=== PATIENT | male | born 1930 | race Caucasian/White ===

== ENCOUNTER 2016-09-13 15:30 | Outpatient (CLI) | payer MEDICARE, BC | END 2016-09-13 15:31 | disposition home or self-care (01) | DX: M62.81 Muscle weakness (generalized) (principal); R06.09 Other forms of dyspnea ==

== ENCOUNTER 2016-09-27 20:24 | Outpatient (CLI) | payer MEDICARE, BC | END 2016-09-27 20:25 | disposition home or self-care (01) | DX: D53.9 Nutritional anemia, unspecified (principal) ==

== ENCOUNTER 2017-10-15 09:47 | Outpatient (CLI) | payer MEDICARE, BC | END 2017-10-15 09:48 | disposition EMS.NT | LOC: EMS 09:47 | PROVIDERS: ATTEND Surgery | DX: R53.1 Weakness (principal); W18.39XA Other fall on same level, initial encounter; Y92.003 Bedroom of unspecified non-institutional (private) residence as the place of occurrence of the external cause ==

== ENCOUNTER 2018-02-12 20:35 | Inpatient (IN) | payer MEDICARE, BC ==
--- NOTE | 2018-02-12 21:57 | ED Physician Documentation ---
PD HPI LOWER EXT INJURY - Stated complaint Stated Complaint: GLF - HIP PX - Chief complaint Chief Complaint: Ext Problem - History obtained from History obtained from: Patient - History of Present Illness PD HPI LOW EXT INJURY LOCATION: Left, Hip, Knee Type of injury: Fall Where injury occurred: Home Timing - onset: Enter time (18:00), Today Timing - details: Abrupt onset Pain level max: 8 Pain level now: 4 Improved by: Rest Worsened by: Moving Associated symptoms: No: Weakness, Numbness, Tingling, Swelling, Discolored Similar symptoms before: Has not had sx before Recently seen: Not recently seen - Additional information Additional information: at approximately 6 PM tonight, patient was walking from his car to his house, lost his balance, and fell in the driveway on his left side. c/o left knee and left hip pain, unable to bear weight; however, he was able to get back into the car and thus his spouse drove patient to ED. Review of Systems Eyes: reports: Reviewed and negative Cardiac: reports: Reviewed and negative Respiratory: reports: Reviewed and negative GI: reports: Reviewed and negative Musculoskeletal: reports: Joint pain (left hip, left knee), Pain with weight bearing (unable to bear weight (LLE)). denies: Neck pain, Back pain Neurologic: reports: Head injury. denies: Generalized weakness, Focal weakness , Numbness, Confused, Altered mental status, Headache, LOC PD PAST MEDICAL HISTORY - Past Medical History Cardiovascular: Hypertension Respiratory: None Endocrine/Autoimmune: None GI: GERD Musculoskeletal: Osteoarthritis - Past Surgical History Past Surgical History: Yes General: Hiatal hernia repair Ortho: Knee replacement HEENT: Cataracts - Present Medications Home Medications: Ambulatory Orders Medication Instructions Recorded Confirmed Cephalexin [Keflex] 500 mg PO TID #20 capsule 08/16/16 Cetirizine HCl 10 mg PO DAILY 08/16/16 08/16/16 predniSONE [Prednisone] 40 mg PO DAILY 08/16/16 08/16/16 raNITIdine [Zantac] 1 tab PO BID 08/16/16 08/16/16 - Allergies Allergies/Adverse Reactions: Allergies Allergy/AdvReac Type Severity Reaction Status Date / Time No Known Drug Allergies Allergy Verified 02/12/18 20:50 - Social History Does the pt smoke?: No Smoking Status: Never smoker Does the pt drink ETOH?: No Does the pt have substance abuse?: No - Immunizations Immunizations are current?: No - POLST Patient has POLST: No PD ED PE NORMAL - Vitals Vital signs reviewed: Yes - General General: Alert and oriented X 3, No acute distress (NAD at rest, appears to be in painful discomfort with any movement involving LLE), Well developed/nourished - HEENT HEENT: PERRL, EOMI - Neck Neck: No bony TTP - Cardiac Cardiac: RRR, No murmur - Respiratory Respiratory: No respiratory distress, Clear bilaterally - Abdomen Abdomen: Soft, Non tender - Extremities Extremities: No edema - Neuro Neuro: Alert and oriented X 3, labor relations representative 2-12 intact, No motor deficit, No sensory deficit, Normal speech Eye Opening: Spontaneous Motor: Obeys Commands Verbal: Oriented GCS Score: 15 PD ED PE EXPANDED - HEENT HEENT Visual: 1 - swelling (1-2 cm diameter swelling with mild focal tenderness, no bony step off) - Extremities Extremities: Tenderness, Limited ROM (left hip and left knee) Results - Vitals Vitals: Vital Signs - 24 hr 02/12/18 02/12/18 20:44 22:30 Temperature 36.4 C L Heart Rate 82 95 Respiratory 20 16 Rate Blood Pressure 133/93 H 130/75 O2 Saturation 100 93 Oxygen O2 Source Room air - Labs Labs: Laboratory Tests 02/12/18 02/12/18 23:15 23:15 WBC 11.4 H RBC 3.41 L Hgb 12.8 L Hct 38.5 L MCV 112.7 H MCH 37.6 H MCHC 33.4 RDW 16.1 H Plt Count 149 MPV 10.1 Neut # (Auto) 8.5 H Lymph # (Auto) 2.0 [place] # (Auto) 0.8 Eos # (Auto) 0.1 Baso # (Auto) 0.1 Absolute Nucleated RBC 0.00 Nucleated RBC % 0.0 Manual Slide Review Indicated Platelet Estimate NORMAL (130-450,000) RBC Morph Micro Appear 1+ OVALOCYTES Sodium 139 Potassium 3.7 Chloride 103 Carbon Dioxide 27 Anion Gap 9.0 BUN 19 Creatinine 1.2 Estimated GFR (MDRD) 57 L Glucose 110 H Calcium 9.3 - Rads (name of study) left knee xrays Radiology: Prelim report reviewed, See rad report left hip xrays Radiology: Prelim report reviewed, See rad report PD MEDICAL DECISION MAKING - ED course Complexity details: reviewed results, re-evaluated patient, considered differential, d/w patient, d/w family ED course: left hip fracture (subcapital) on xrays. D/W Dr. Dalton, who will see patient in the AM, recommends hospitalist admission. D/W Dr. Cameron, will admit to hospitalist service. - Sepsis Event Vital Signs: Vital Signs - 24 hr 02/12/18 02/12/18 20:44 22:30 Temperature 36.4 C L Heart Rate 82 95 Respiratory 20 16 Rate Blood Pressure 133/93 H 130/75 O2 Saturation 100 93 Oxygen O2 Source Room air Departure - Departure Disposition: 66 [facility] DC/Xfer Clinical Impression: Closed left hip fracture Qualifiers: Encounter type: initial encounter Qualified Code(s): S72.002A - Fracture of unspecified part of neck of left femur, initial encounter for closed fracture Condition: Good Discharge Date/Time: 02/13/18 00:21
--- NOTE | 2018-02-12 22:46 | XRAY Report ---
Procedure Date: 02/12/2018 Accession Number: [id number] / [id number] Procedure: XR - Knee 4 View LT CPT Code: FULL RESULT: EXAM: LEFT KNEE RADIOGRAPHY. EXAM DATE: 02/12/2018 10:21 PM. CLINICAL HISTORY: Fall. COMPARISON: None. TECHNIQUE: 4 views. FINDINGS: Bones: Normal. No fractures or bone lesions. Joints: Moderate narrowing of the left medial compartment with small osteophytes. No subluxations or large effusions. Soft Tissues: Normal. No soft tissue swelling. IMPRESSION: 1. Moderate left medial compartment arthritis. 2. No fracture or malalignment. 3. No effusions. RADIA
--- NOTE | 2018-02-12 22:47 | XRAY Report ---
Procedure Date: 02/12/2018 Accession Number: [id number] / [id number] Procedure: XR - Hip w/Pelvis 2-3V LT CPT Code: FULL RESULT: EXAM: LEFT HIP AND PELVIS RADIOGRAPHY. EXAM DATE: 02/12/2018 10:21 PM. HISTORY: Fall. COMPARISONS: None. TECHNIQUE: 1 view of the pelvis and 1 view of the hip. FINDINGS: Bones: Osteopenic patient. There is an acute, mildly displaced left femur subcapital neck fracture. No displaced fracture of the right femur, neck or bony pelvis. Joints: Normal alignment of both hip joints. Mild right SI joint sclerosis. Degenerative disk disease is noted in the lower lumbar spine. Soft Tissues: Normal. No soft tissue swelling. IMPRESSION: 1. Acute, mildly displaced subcapital left femoral neck fracture. 2. No dislocation. RADIA
[2018-02-12] MEDS ORDERED: SODIUM CHLORIDE 0.9% 1,000 ML IV STA (23:01)
[2018-02-12] MEDS ORDERED: MORPHINE 2 MG/ML SYRINGE IVP STA (23:02)
[2018-02-12] MEDS ORDERED: HYDROmorphone 0.5 MG/0.5 ML SYRINGE IVP PRN (23:26)
--- NOTE | 2018-02-12 23:30 | PROVIDER PROGRESS NOTE ---
Subjective - Prog Note Date Prog Note Date: 02/12/18 Prog Note Time: 23:24 - Subjective Pt reports feeling: Worse (Patient [facility] a GLF tonight, sustaining a mildly impacted lef tfemoral neck hip fracture. No LOC or other injuries. No distal weakness/numbness) Objective - Vital Signs/Intake & Output Vital Signs: Vital Signs x48h Temp Pulse Resp BP Pulse Ox 02/12/18 20:44 36.4 C L 82 20 133/93 H 100 Intake & Output: Intake & Output 02/09/18 02/10/18 02/11/18 02/12/18 23:59 23:59 23:59 23:59 Output Total 200 Balance -200 - Diagnostic Imaging Diagnostic Imaging Comments: XR showed mildly impacted, Pauwel's I-II left femoral neck hip fracture - Other Results/Comments Other Results/Comments: EXAM: Left hip - 1-2 + tender anteriorly. Painful left motion. Minimal leg shortening. Moves toes well. Sensation intact. Good cap filling Assessment/Plan - Problem List (1) Closed left hip fracture Impression: Closed , minimally impacted femoral neck hip fracture; Pauwel's I-II PLAN: After medical clearance, plan surgical fixation of fracture with multiple large cannulated screws. Risks and benefits of surgery explained and questions answered. Patient wishes to proceed with surgery this morning. Leg marked. consent signed. Qualifiers: Encounter type: initial encounter Qualified Code(s): S72.002A - Fracture of unspecified part of neck of left femur, initial encounter for closed fracture
[2018-02-12 23:33] LABS: BASOPHILS # (AUTO) 0.1 10^3/uL (0.0-0.1); BASOPHILS % (AUTO) 0.7 %; EOSINOPHILS # (AUTO) 0.1 10^3/uL (0.0-0.7); EOSINOPHILS % (AUTO) 0.5 %; HGB - HEMOGLOBIN 12.8 g/dL (14.0-18.0); LYMPHOCYTES % (AUTO) 17.9 %; MEAN CORPUSCULAR HEMOGLOBIN 37.6 pg (27.0-31.0); MEAN CORPUSCULAR HGB CONC 33.4 g/dL (32.0-36.0); MEAN CORPUSCULAR VOLUME 112.7 fL (80.0-94.0); MEAN PLATELET VOLUME 10.1 fL (7.4-11.4); MONOCYTES # (AUTO) 0.8 10^3/uL (0.0-1.0); MONOCYTES % (AUTO) 6.7 %; NEUTROPHILS # (AUTO) 8.5 10^3/uL (1.5-6.6); NEUTROPHILS % (AUTO) 74.2 %; PLT - PLATELET COUNT 149 10^3/uL (130-450); RED BLOOD COUNT 3.41 10^6/uL (4.70-6.10); RED CELL DISTRIBUTION WIDTH 16.1 % (12.0-15.0); WHITE BLOOD COUNT 11.4 x10^3/uL (4.8-10.8)
[2018-02-12 23:35] LABS: CALCIUM 9.3 mg/dL (8.5-10.3); CREATININE 1.2 mg/dL (0.6-1.2)
[2018-02-13 00:21] LABS: PLATELET ESTIMATE, MANUAL NORMAL (130-450,000) (NORMAL)
[2018-02-13] MEDS: D5.45NS W/20 MEQ KCL 1,000 ML IV SCH ×2 (00:28→07:56)
[2018-02-13] MEDS: SODIUM CHLORIDE FLUSH 0.9% 10 ML SYRINGE IVP SCH ×4 (00:28→23:44)
--- NOTE | 2018-02-13 00:30 | HISTORY & PHYSICAL EXAMINATION ---
Chief Complaint - Chief Complaint Chief Complaint: Left hip pain History of Present Illness - Admitted From Admitted From:: Home - History Obtained From History obtained from: Patient, , ED physician - History of Present Illness HPI Comment/Other: Mr. Erik Villasenor is a very pleasant 87-year-old gentleman who unfortunately fell earlier today, landing on his left hip. He says he did not lose consciousness or strike his head but he does appear to have a small amount of trauma to his head. He came to the emergency department and was found to have a left intertrochanteric fracture. He has pain which she says is well controlled at this time and is aching in quality. He denies any fevers or chills, shortness of breath or chest pain. He will be seen by Dr. Dalton in the morning with anticipated surgery tomorrow some time. History - Past Medical History Cardiovascular: reports: None Respiratory: reports: None Endocrine/Autoimmune: reports: None GI: reports: GERD Musculoskeletal: reports: Osteoarthritis MRSA Hx?: No - Past Surgical History General: reports: Hiatal hernia repair Ortho: reports: Knee replacement HEENT: reports: Cataracts - Family & Social History Family History: Mother: (Mother age 91 of natural causes, father age 86 of unknown causes, possibly cardiac.), Father: , Sister: , CAD, Hyperlipidemia, Hypertension, [place] Living arrangement: At home Living Situation: With spouse/s.o. - Substance History Use: Uses substance without health or social issues: Alcohol Abuse: Recurrent use of substance despite neg consequences: NONE Dependence: Experiences withdrawal or developed tolerances: NONE - POLST Patient has POLST: No POLST Status: Full Code Meds/Allgy - Home Medications Home Medications: Ambulatory Orders Medication Instructions Recorded Confirmed Cephalexin [Keflex] 500 mg PO TID #20 capsule 08/16/16 Cetirizine HCl 10 mg PO DAILY 08/16/16 08/16/16 predniSONE [Prednisone] 40 mg PO DAILY 08/16/16 08/16/16 raNITIdine [Zantac] 1 tab PO BID 08/16/16 08/16/16 - Allergies Allergies/Adverse Reactions: Allergies Allergy/AdvReac Type Severity Reaction Status Date / Time No Known Drug Allergies Allergy Verified 02/12/18 20:50 Review of Systems - Constitutional Constitutional: denies: Fatigue, Fever, Chills, Malaise - Eyes Eyes: denies: Pain, Irritation, Amaurosis, Blurred vision, Dipolpia - Ears, Nose & Throat Ears, Nose & Throat: denies: Ear pain, Tinnitus, Vertigo, Nasal pain, Nosebleeds , Hoarseness - Cardiovascular Cariovascular: denies: Irregular heart rate, Palpitations, Chest pain, Edema, Syncope - Respiratory Respiratory: denies: Cough, Sputum production, Wheezing, Snoring, Hemoptysis, Orthopnea, SOB at rest - Gastrointestinal Gastrointestinal: denies: Abdominal pain, Abdominal distention, Constipation, Diarrhea, Change in bowel habits, Rectal bleeding - Genitourinary Genitourinary: denies: Dysuria, Frequency, Urgency, Hematuria - Musculoskeletal Musculoskeletal: reports: Muscle aches, Limited range of motion, Joint pain. denies: Back pain, Gout - Integumentary Integumentary: denies: Rash, Pruritis, Lesions, Dryness - Neurological Neurological: denies: General weakness, Focal weakness, Headache, Dizziness - Psychiatric Psychiatric: denies: Depression, Anxiety, Suicidal, Hallucinations - Endocrine Endocrine: denies: Polyuria, Polydypsia, Polyphagia - Hematologic/Lymphatic Hematologic/Lymphatic: denies: Anemia, Bruising, Petechiae, Lymphadenopathy - All Other Systems All Other Systems: reports: Reviewed and negative Exam - Vital Signs Reviewed Vital Signs: Yes Vital Signs: Vital Signs x48h Temp Pulse Resp BP Pulse Ox 02/12/18 23:56 88 16 104/56 L 95 02/12/18 23:27 36.4 C L 91 17 121/83 H 92 - Physical Exam General Appearance: positive: No acute distress, Alert Eyes Bilateral: positive: Normal inspection, PERRL, EOMI, No lid inflammation, Conjunctivae nml, No scleral icterus ENT: positive: ENT inspection nml, Pharynx nml, No signs of dehydration Neck: positive: Nml inspection, Thyroid nml, No JVD, Trachea midline. negative : Thyromegaly Respiratory: positive: Chest non-tender, No respiratory distress, Breath sounds nml. negative: Wheezes, Rales, Rhonchi Cardiovascular: positive: Regular rate & rhythm, No murmur, No gallop Peripheral Pulses: positive: 1+ Abdomen: positive: Non-tender, No organomegaly, Nml bowel sounds, No distention. negative: Guarding, Rebound Back: positive: Nml inspection. negative: CVA tenderness (R), CVA tenderness (L ) Skin: positive: Color nml, No rash, Warm, Dry. negative: Cyanosis Extremities: positive: Non-tender, Full ROM, Nml appearance, No pedal edema Neurologic/Psychiatric: positive: Oriented x3, CN's nml (2-12), Motor nml, Sensation nml, Mood/affect nml Conclusion/Plan - Problem List (1) Closed left hip fracture Conclusion/Plan: The patient has a left intertrochanteric fracture. He will be seen by Dr. Dalton for surgical repair tomorrow. He has a 0.4% risk of major cardiac event per the revised cardiac risk index. He is class I risk and has 0 points. We will obtain a 12-lead EKG but otherwise the patient is remarkably healthy 87-year- old gentleman who really does not take any kind of prescription medications on a regular basis. We will continue to monitor the patient's labs and correct any electrolyte abnormalities as they occur. Qualifiers: Encounter type: initial encounter Qualified Code(s): S72.002A - Fracture of unspecified part of neck of left femur, initial encounter for closed fracture - Lab Results Lab results reviewed: Yes Fish Bones: 02/12/18 23:15 02/12/18 23:15 Core Measures - Anticipated LOS I expect patient to be DC'd or transferred within 96 hours.: Yes - DVT/VTE - Prophylaxis VTE/DVT Device ordered at admit?: Yes
[2018-02-13 04:44] LABS: CALCIUM 8.9 mg/dL (8.5-10.3); HGB - HEMOGLOBIN 12.6 g/dL (14.0-18.0); MEAN CORPUSCULAR HEMOGLOBIN 38.2 pg (27.0-31.0); MEAN CORPUSCULAR HGB CONC 33.6 g/dL (32.0-36.0); MEAN CORPUSCULAR VOLUME 113.5 fL (80.0-94.0); MEAN PLATELET VOLUME 9.6 fL (7.4-11.4); RED BLOOD COUNT 3.31 10^6/uL (4.70-6.10); RED CELL DISTRIBUTION WIDTH 16.8 % (12.0-15.0)
[2018-02-13 04:48] LABS: MAGNESIUM 2.1 mg/dL (1.7-2.8); PHOSPHORUS 2.8 mg/dL (2.5-4.6)
[2018-02-13] MEDS: SODIUM CHLORIDE FLUSH 0.9% 10 ML SYRINGE IVP PRN (06:34)
[2018-02-13] MEDS: PANTOPRAZOLE 40 MG VIAL IVP SCH (06:34)
[2018-02-13] MEDS ORDERED: ceFAZolin 2 GM/50 ML 2 GM/50 ML BAG IV SCH (07:00)
[2018-02-13 07:19] LABS: FOLATE 5.65 ng/mL (5.90 - >24.8)
[2018-02-13] MEDS: POLYETHYLENE GLYCOL 3350 17 GM PACKET PO SCH (07:45)
[2018-02-13] MEDS ORDERED: BUPIVACAINE 0.25% PF 30 ML VIAL ONE (08:25)
--- NOTE | 2018-02-13 09:44 | CONSULTATION NOTE ---
DATE OF SERVICE: 02/13/2018 Physician: Kofi Dalton MD REFERRING PHYSICIAN: Dr. Miranda of the Emergency Room CHIEF COMPLAINT: "My left hip hurts." HISTORY OF PRESENT ILLNESS: Patient is a pleasant 87-year-old male that was carrying a heavy sack of goods from his car yesterday when he stumbled landing on his left side. He noted immediate pain in his left hip area. He was unable to stand or bear due to pain. He was taken by ambulance to the emergency room at [facility] where x-rays showed a minimally impacted, minimally displaced left femoral neck hip fracture. The patient denied any other injuries. No loss of conscious, nausea, vomiting. No distal weakness or numbness. No prior hip fractures. PHYSICAL EXAMINATION: On examination, patient had some 1+ anterior left hip tenderness on palpation. Had painful range of motion today. The leg was minimally shortened. Patient moves his toes well. Sensation intact throughout. Good capillary filling of the digits noted. IMAGING: X-rays that were taken show a mildly impacted left femoral neck fracture - Pauwels type I-II fracture. ASSESSMENT: Closed, minimally impacted left femoral neck hip fracture - Pauwels type I-II. PLAN: The patient has been cleared by Medicine to proceed with surgical fixation of this fracture. I explained to the patient and his the pros and cons of surgery, the risks and benefits. After answering all their questions, they wished to proceed with surgery as planned. They are aware of the potential risk of wound infection, blood loss, nerve involvement, malunion, nonunion, hardware failure, deep venous thromboses, etc. The left leg is then marked. Consent has been signed. We will plan on proceeding with surgery when an operating room is available later on the morning of 02/13/2018. TD: 02/13/2018 09:21
[2018-02-13] MEDS ORDERED: LACTATED RINGERS 1,000 ML IV ONE (10:13)
[2018-02-13] MEDS ORDERED: BUPIVACAINE 0.25%-EPI 1:200000 PF 30 ML VIAL ONE (10:19)
[2018-02-13] MEDS ORDERED: BUPIVACAINE 0.25%-EPI 1:200000 PF 30 ML VIAL SUBQ ONE (10:44)
--- NOTE | 2018-02-13 11:21 | OPERATIVE REPORT ---
Operative Report - General Admit Date: 02/12/18 Procedure Date: 02/13/18 Planned Procedure: Multiple cannulated screw fixation of left hip fracture Pre-Op Diagnosis: Impacted left femoral neck hip fracture - Pauwel's I-II Procedure Performed: Closed reduction and multiple cannulated screw fixation of left hip fracture Post Op Diagnosis: Same - Procedure Note Primary Surgeon: Justin Dalton Secondary Surgeon: Caitlin Anesthesia Provider: Carina Hope Anesthesia Technique: General ET tube, General LMA IV Fluids (mL): 500 Estimated Blood Loss (mL): 50 Complications: None
[2018-02-13] MEDS ORDERED: ACETAMINOPHEN 325 MG TABLET PO PRN (11:26)
[2018-02-13] MEDS ORDERED: ONDANSETRON 4 MG/2 ML VIAL IVP PRN (11:26)
[2018-02-13] MEDS ORDERED: SODIUM CHLORIDE FLUSH 0.9% 10 ML SYRINGE IVP PRN (11:26)
[2018-02-13] MEDS ORDERED: PROCHLORPERAZINE 10 MG/2 ML VIAL IVP PRN (11:26)
[2018-02-13] MEDS ORDERED: DOCUSATE SODIUM 100 MG CAPSULE PO PRN (11:26)
[2018-02-13] MEDS ORDERED: SENNA 8.6 MG TABLET PO PRN (11:26)
--- NOTE | 2018-02-13 12:00 | OPERATIVE REPORT ---
DATE OF SERVICE: 02/13/2018 Physician: Kofi Dalton MD PREOPERATIVE DIAGNOSIS: Impacted left femoral neck hip fracture - Pauwel's type 1-2. POSTOPERATIVE DIAGNOSIS: Impacted left femoral neck hip fracture - Pauwel's type 1-2. PROCEDURE PERFORMED: Closed reduction and multiple cannulated screw fixation of left hip fracture. SURGEON: Kofi Dalton MD ANESTHESIA: Barbara Hope CRNA. DESCRIPTION OF PROCEDURE: The patient was taken to the operating room on the morning of 02/13/2018, where he was placed under a general anesthetic without any complications. He was then positioned supine on the fracture table. The right unfractured the leg was then flexed and widely abducted and held in a well-leg peoples. The fractured left extremity was then placed into axial traction with the leg internally rotated about 40 degrees. Fluoroscopic view showed the good reduction of the fracture in both AP and lateral projections. We then prepped and draped the lateral aspect of the hip in the usual fashion for our procedure. Making a small 2 cm longitudinal skin incision in the proximal lateral thigh, we dissected down to the fractured femur. We then, with fluoroscopic guidance, were able to insert 3 threaded tip guide pins obliquely to the proximal femur, femoral neck and femoral head, so that the tip of the pins were near parallel and were within about 2 mm of subchondral bone in both AP and lateral projections. Satisfied with the position of our guide pins, the direct measuring guide was used and we determined that would use a 100 mm, 95 mm, 90 mm in length, 7.3 mm diameter, 16 mm threads cannulated screws. We then used the cannulated drill to perforate the lateral femoral cortex, using our guide pin as guides. Finally, we inserted the appropriate cannulated screw, again using the guide pins to assist. Fluoroscopic views showed we had good fracture fixation and that the hardware was satisfactorily positioned. We then removed the guide pins and obtained permanent films. Irrigated the wound with saline. Closed the wound in layers using a [id number] stitch of 0 Vicryl to approximate the fascia lauri layer, followed by buried simple stitches of 2-0 Vicryl to approximate subcutaneous tissues. Skin rocío were used to approximate the skin edges. A 20 mL of 0.25% Marcaine with epinephrine was used for local anesthesia around the incision site. The wound was dressed. The patient transferred onto his bed off the fracture table and taken to recovery room in satisfactory condition. ESTIMATED BLOOD LOSS: 50 mL. REPLACEMENT: 500 mL crystalloid. INTRAOPERATIVE COMPLICATIONS: None. PLAN: The patient will be immobilized as tolerated. May be weightbearing as tolerated in the left lower extremity. TD: 02/13/2018 11:43
[2018-02-13] MEDS: SODIUM CHLORIDE 0.9% 1,000 ML IV SCH ×2 (12:33→23:20)
[2018-02-13] MEDS: ACETAMINOPHEN 1,000 MG/100 ML 100 ML IV PRN (12:33)
[2018-02-13] MEDS: oxyCOD/ACETAMIN 5 MG/325 MG TABLET PO PRN ×2 (14:13→18:10)
--- NOTE | 2018-02-13 15:40 | XRAY Report ---
Procedure Date: 02/13/2018 Accession Number: [id number] / [id number] Procedure: FL - OR C-Arm Procedure CPT Code: FULL RESULT: EXAM: OR C-Arm Procedure DATE: 02/13/2018 11:11 AM CLINICAL HISTORY: INTRAOPERATIVE OR 2 left hip fracture COMPARISON: 02/12/2018 FINDINGS/IMPRESSION: C-arm fluoroscopic assistance provided for ORIF left hip fracture. 22 seconds of fluoroscopy time are used. One image is obtained.
--- NOTE | 2018-02-13 15:56 | XRAY Report ---
Procedure Date: 02/13/2018 Accession Number: [id number] / [id number] Procedure: XR - Hip w/Pelvis 1V LT CPT Code: FULL RESULT: EXAM: Left hip DATE: 02/13/2018 11:08 AM CLINICAL HISTORY: Left hip fracture COMPARISON: 02/12/2018 FINDINGS/IMPRESSION: 2 views of the left hip were obtained during ORIF of a hip fracture. RADIA
[2018-02-13] MEDS ORDERED: SODIUM CHLORIDE FLUSH 0.9% 10 ML SYRINGE IVP SCH (17:00)
[2018-02-13] MEDS: ceFAZolin 2 GM/50 ML 2 GM/50 ML BAG IV SCH (17:10)
[2018-02-13] MEDS: ASPIRIN 325 MG TABLET PO SCH (17:10)
[2018-02-13] MEDS ORDERED: LIDOCAINE JELLY 2% 5 ML TUBE TOP PRN (17:42)
--- NOTE | 2018-02-13 17:55 | PROVIDER PROGRESS NOTE ---
Subjective - Prog Note Date Prog Note Date: 02/13/18 Prog Note Time: 17:53 - Subjective Pt reports feeling: Improved Subjective: Elier is alert and eating post-op for his exam. His , Ariane is at his side. He claims that his pain is well controlled. He denies headaches, changes in vision, nausea, vomiting, shortness of breath, chest pain, numbness or tingling. He states that he has been having increased falls and has been evaluated out patient, by Dr. Fleming as they are leaning toward Parkinson's disease. Current Medications - Current Medications Current Medications: Active Medications Acetaminophen (Tylenol) 650 - 975 mg PO Q4HR PRN PRN Reason: PAIN Aspirin (Tim) 325 mg PO BIDWM [facility] Last Admin: 02/13/18 17:10 Dose: 325 mg Cefazolin Sodium/Dextrose (Ancef 2 Gm/50 Ml) 2 gm in 50 mls @ 100 mls/hr IV Q8H [facility] Stop: 02/14/18 02:29 Last Infusion: 02/13/18 17:42 Dose: Infused Acetaminophen (Ofirmev) 100 mls @ 400 mls/hr IV Q6HR PRN PRN Reason: PAIN Last Infusion: 02/13/18 12:57 Dose: Infused Sodium Chloride (Normal Saline 0.9%) 1,000 mls @ 100 mls/hr IV .Q10H [facility] Last Admin: 02/13/18 12:33 Dose: 100 mls/hr Lidocaine HCl (Xylocaine Jelly 2%) 2.5 ml TOP Q2H PRN PRN Reason: PAIN Morphine Sulfate (Morphine) 2 mg IVP Q2HR PRN PRN Reason: PAIN Ondansetron HCl (Zofran Inj) 4 mg IVP Q6HR PRN PRN Reason: Nausea / Vomiting Oxycodone/Acetaminophen (Percocet 5 Mg/325 Mg) 1 tab PO Q4HR PRN PRN Reason: PAIN Last Admin: 02/13/18 14:13 Dose: 1 tab Pantoprazole Sodium (Protonix) 40 mg IVP QDAC [facility] Last Admin: 02/13/18 06:34 Dose: 40 mg Polyethylene Glycol (Miralax) 17 gm PO DAILY [facility] Last Admin: 02/13/18 07:45 Dose: Not Given Prochlorperazine Edisylate (Compazine Inj) 10 mg IVP Q6HR PRN PRN Reason: Nausea / Vomiting Sodium Chloride (Normal Saline Flush 0.9%) 10 ml IVP PRN PRN PRN Reason: NEEDED PER PROVIDER ORDERS Last Admin: 02/13/18 06:34 Dose: 20 ml Sodium Chloride (Normal Saline Flush 0.9%) 10 ml IVP 0100,0900,1700 JOSE Last Admin: 02/13/18 15:44 Dose: Not Given No Known Home Medications [No Known Home Medications] 02/13/18 Objective - Vital Signs/Intake & Output Reviewed Vital Signs: Yes Vital Signs: Vital Signs x48h Temp Pulse Resp BP Pulse Ox 02/13/18 15:57 36.3 C L 67 16 102/67 98 02/13/18 14:39 36.3 C L 66 16 106/67 93 02/13/18 13:48 36.2 C L 70 16 110/72 100 02/13/18 12:48 35.8 C L 71 18 120/85 H 98 02/13/18 12:18 36.8 C 74 18 127/93 H 97 02/13/18 12:15 97 02/13/18 12:05 93 02/13/18 12:00 96 02/13/18 11:55 95 02/13/18 11:49 100 02/13/18 11:45 100 02/13/18 11:39 100 02/13/18 11:34 100 02/13/18 11:30 100 02/13/18 11:25 100 02/13/18 11:20 100 02/13/18 11:18 100 Intake & Output: Intake & Output 02/10/18 02/11/18 02/12/18 02/13/18 23:59 23:59 23:59 23:59 Intake Total 1254.000 Output Total 595 Balance 659.000 - Objective General Appearance: positive: No acute distress, Alert, Anxious Eyes Bilateral: positive: Normal inspection, PERRL Eyes: OU Conjunctivae pale ENT: positive: ENT inspection nml, Pharynx nml, Dry mucous membranes Neck: positive: Nml inspection, Thyroid nml, No JVD, Trachea midline Respiratory: positive: Chest non-tender, No respiratory distress, Other ( diminshed through out) Cardiovascular: positive: Regular rate & rhythm, Systolic murmur Peripheral Pulses: 2+ Radial (R), 2+ Radial (L), 2+ Dorsalis pedis (R), 2+ Dorsalis pedis (L) Abdomen: positive: Non-tender, Nml bowel sounds, Other (rounded, firm) Back: positive: Nml inspection Skin: positive: No rash, Warm, Dry Extremities: positive: No pedal edema, Joint swelling (left hip with a CDI dressing and ice pack in place.) Neurologic/Psychiatric: positive: Oriented x3, CN's nml (2-12), Motor nml, Sensation nml, Weakness, Depressed mood/affect, Other (slow to respond, mild anxiety noted.) Reflexes: Bicep (R): 3+, Bicep (L): 3+ - Lab Results Fish Bones: 02/13/18 04:17 02/13/18 04:17 Other Labs: Lab Results x24hrs 02/13/18 02/13/18 02/13/18 Range/Units 04:17 04:17 04:17 WBC 9.0 (4.8-10.8) x10^3/uL RBC 3.31 L (4.70-6.10) 10^6/uL Hgb 12.6 L (14.0-18.0) g/dL Hct 37.6 L (42.0-52.0) % MCV 113.5 H (80.0-94.0) fL MCH 38.2 H (27.0-31.0) pg MCHC 33.6 (32.0-36.0) g/dL RDW 16.8 H (12.0-15.0) % Plt Count 146 (130-450) 10^3/uL MPV 9.6 (7.4-11.4) fL Sodium 136 (135-145) mmol/L Potassium 3.8 (3.5-5.0) mmol/L Chloride 103 (101-111) mmol/L Carbon Dioxide 26 (21-32) mmol/L Anion Gap 7.0 (6-13) BUN 17 (6-20) mg/dL Creatinine 1.0 (0.6-1.2) mg/dL Estimated GFR (MDRD) 71 L (>89) Glucose 152 H (70-100) mg/dL Calcium 8.9 (8.5-10.3) mg/dL Phosphorus 2.8 (2.5-4.6) mg/dL Magnesium 2.1 (1.7-2.8) mg/dL Vitamin B12 (180-914) pg/mL Folate (5.90 - >24.8) ng/mL 02/13/18 Range/Units 04:12 WBC (4.8-10.8) x10^3/uL RBC (4.70-6.10) 10^6/uL Hgb (14.0-18.0) g/dL Hct (42.0-52.0) % MCV (80.0-94.0) fL MCH (27.0-31.0) pg MCHC (32.0-36.0) g/dL RDW (12.0-15.0) % Plt Count (130-450) 10^3/uL MPV (7.4-11.4) fL Sodium (135-145) mmol/L Potassium (3.5-5.0) mmol/L Chloride (101-111) mmol/L Carbon Dioxide (21-32) mmol/L Anion Gap (6-13) BUN (6-20) mg/dL Creatinine (0.6-1.2) mg/dL Estimated GFR (MDRD) (>89) Glucose (70-100) mg/dL Calcium (8.5-10.3) mg/dL Phosphorus (2.5-4.6) mg/dL Magnesium (1.7-2.8) mg/dL Vitamin B12 222 (180-914) pg/mL Folate 5.65 L (5.90 - >24.8) ng/mL ABX Reporting Has patient been on IV antibiotics over the past 48 hours?: Yes Assessment/Plan - Problem List (1) Closed left hip fracture Impression: The patient and his attest to him having an accidental fall while out side ambulating. They had just returned home after a long car ride to [place] to exchange a TV. The patient states that he becomes easily agitated when he is confined to long car rides. He states that he has had a few falls in the last few days and described symptoms preceding these falls as he sees his environment spinning. He denies loss of consciousness, nausea, sweats, chest pain, palpitations, or shortness of breath during the episodes. His Ariane, asked that he call an ambulance each time he fell, but he refused. This time he fell on his left side and was able to pull himself into their car, despite his injured left hip. Once in the ED, imaging showed an intratrochanteric fracture. The patient underwent a surgical repair today (02/13/18) and so far has not had any complications. Plan: Work up possible causes of recent falls such as infection, cardiac, or pulmonary. PT/OT to evaluate and follow post-op course as per orthopedic surgery. Qualifiers: Encounter type: initial encounter Qualified Code(s): S72.002A - Fracture of unspecified part of neck of left femur, initial encounter for closed fracture (2) Multiple falls Impression: The patient states that he has had a few falls in the last few days and described symptoms preceding these falls as he sees his environment spinning. He denies loss of consciousness, nausea, sweats, chest pain, palpitations, leg weakness, or shortness of breath during the episodes. His Ariane, asked that he call an ambulance each time he fell, but he refused. This time he fell on his left side and was able to pull himself into their car, despite his injured left hip. He and his state that his PCP is aware of these events and has been working him up for possible early Parkinson's disease, including a few neuro-psych evaluations. Ariane claims that these sessions were troubling for her and intensive in nature. Plan: Fall precautions, monitor for post-op delirium. Plan for physical therapy recommendations for further, ongoing physical therapy. (3) BPH associated with nocturia Impression: The patient states that at home for the past several years, he has needed to urinate in the night up to 4 times. When he attempts to start a stream of urine , he has trouble starting it, and only produces a very small amount. He claims that he often feels as if he is not emptying completely out. Nursing reports that he has been incontinent a few times since arriving back from the OR and when he uses his urinal can only expel ~100 mL at the most. The patient's , Ariane remembers that he was on "some urinary pill" that was prescribed by PCP that seemed to help with these symptoms, but her soon refused to take these. Plan: Obtain UA via straight cath with culture given urinary incontinence, elevated WBCs upon admission and recent falls, bladder scan ordered every 6 hours/straight cath, PRN for urine greater than 500mL or for symptoms. (4) Leukocytosis Impression: The patient was noted to have an elevated WBC count of 11.4 upon admission, that reduced to 9.0. He denies recent steroid use. He is suffering from some dysuria and falls. Plan: Obtain UA with culture, monitor labs at least daily. Qualifiers: Leukocytosis type: other Qualified Code(s): D72.828 - Other elevated white blood cell count (5) Heart murmur Impression: The patient is noted to have a mid-systolic murmur noted. EKG notes a possible atrial enlargement and QRS complexes appear reduced in size. The patient denies ANY cardiac history and take zero medications at home. The patient and his denies previous knowledge of a heart murmur. The patient is noted to have a rounded, firm abdomen without a known pulmonary history. Plan: Obtain an echocardiogram in the AM, monitor labs, obtain a BNP. (6) Post-operative state Impression: The patient underwent a repair of his left hip with Dr. Dalton. The patient and his feel well informed from this surgeon and are appreciative of his expertise. The patient has no obvious post-op complications and all orders are being followed including a prophylaxis daily full dose aspirin. Plan: Continue to monitor. (7) Anemia Impression: The patient appears to have a baseline H/H of 14.1/41.6 that is now down to 12.6 /37.6. Estimated blood loss is documented as 50 mL during surgery. Labs also show a macrocytic anemia with MCV being very elevated. Plan: Continue to monitor and order iron studies for the AM. Qualifiers: Other causes of anemia: other cause, not classified
[2018-02-13 18:46] LABS: BILIRUBIN,URINE NEGATIVE (NEGATIVE); GLUCOSE, URINE (UA) NEGATIVE (NEGATIVE); KETONES,URINE (UA) NEGATIVE (NEGATIVE); LEUKOCYTE ESTERASE, URINE SMALL (NEGATIVE); NITRITE,URINE NEGATIVE (NEGATIVE); OCCULT BLOOD,URINE TRACE-INTA (NEGATIVE); PROTEIN,URINE TRACE mg/dL (NEGATIVE); UROBILINOGEN,URINE 0.2 (NORMAL) E.U./dL (NORMAL)
[2018-02-13 19:03] LABS: CLARITY,URINE HAZY (CLEAR)
[2018-02-13 19:15] LABS: BACTERIA,URINE Few /HPF (None Seen); SQUAMOUS EPITHELIAL CELL,UR NONE SEEN (<= Few); WBC CLUMPS,URINE PRESENT
[2018-02-14 01:04] LABS: BASOPHILS % (AUTO) 0.3 %; EOSINOPHILS % (AUTO) 0.4 %; HGB - HEMOGLOBIN 10.3 g/dL (14.0-18.0); LYMPHOCYTES # (AUTO) 2.4 10^3/uL (1.5-3.5); LYMPHOCYTES % (AUTO) 27.2 %; MEAN CORPUSCULAR HEMOGLOBIN 38.2 pg (27.0-31.0); MEAN CORPUSCULAR HGB CONC 33.7 g/dL (32.0-36.0); MEAN CORPUSCULAR VOLUME 113.3 fL (80.0-94.0); MEAN PLATELET VOLUME 9.4 fL (7.4-11.4); MONOCYTES # (AUTO) 0.8 10^3/uL (0.0-1.0); MONOCYTES % (AUTO) 8.5 %; NEUTROPHILS # (AUTO) 5.7 10^3/uL (1.5-6.6); NEUTROPHILS % (AUTO) 63.6 %; PLT - PLATELET COUNT 129 10^3/uL (130-450); RED CELL DISTRIBUTION WIDTH 16.7 % (12.0-15.0); WHITE BLOOD COUNT 8.9 x10^3/uL (4.8-10.8)
[2018-02-14 01:36] LABS: PLATELET ESTIMATE, MANUAL NORMAL (130-450,000) (NORMAL)
[2018-02-14] MEDS: ceFAZolin 2 GM/50 ML 2 GM/50 ML BAG IV SCH (02:59)
[2018-02-14 05:11] LABS: HGB - HEMOGLOBIN 10.6 g/dL (14.0-18.0); MEAN CORPUSCULAR HEMOGLOBIN 38.2 pg (27.0-31.0); MEAN CORPUSCULAR HGB CONC 33.4 g/dL (32.0-36.0); MEAN CORPUSCULAR VOLUME 114.3 fL (80.0-94.0); MEAN PLATELET VOLUME 9.9 fL (7.4-11.4); RED BLOOD COUNT 2.78 10^6/uL (4.70-6.10); RED CELL DISTRIBUTION WIDTH 17.1 % (12.0-15.0); WHITE BLOOD COUNT 8.2 x10^3/uL (4.8-10.8)
[2018-02-14 06:18] LABS: HB2 TOTAL 11.1 g/dL; HEMOGLOBIN A1C 0.39 g/dL; HEMOGLOBIN A1C % 5.4 % (4.6-6.2)
[2018-02-14 06:21] LABS: ALBUMIN 3.2 g/dL (3.2-5.5); BILIRUBIN,TOTAL 0.5 mg/dL (0.2-1.0); CALCIUM 8.3 mg/dL (8.5-10.3); TOTAL PROTEIN 6.4 g/dL (6.7-8.2)
[2018-02-14] MEDS: SODIUM CHLORIDE FLUSH 0.9% 10 ML SYRINGE IVP PRN ×2 (06:55→18:57)
[2018-02-14] MEDS: FOLIC ACID 1 MG TABLET PO SCH ×2 (06:55→09:41)
[2018-02-14] MEDS: PANTOPRAZOLE 40 MG VIAL IVP SCH (06:55)
[2018-02-14] MEDS: POLYETHYLENE GLYCOL 3350 17 GM PACKET PO SCH (08:23)
[2018-02-14] MEDS: SODIUM CHLORIDE FLUSH 0.9% 10 ML SYRINGE IVP SCH ×3 (08:23→23:50)
[2018-02-14] MEDS: ASPIRIN 325 MG TABLET PO SCH ×2 (08:23→17:53)
[2018-02-14] MEDS: ACETAMINOPHEN 1,000 MG/100 ML 100 ML IV PRN (08:24)
[2018-02-14] MEDS: TAMSULOSIN 0.4 MG CAPSULE PO SCH (09:40)
[2018-02-14] MEDS: oxyCOD/ACETAMIN 5 MG/325 MG TABLET PO PRN ×2 (09:40→23:49)
[2018-02-14] MEDS ORDERED: TAMSULOSIN 0.4 MG CAPSULE PO SCH (10:00)
[2018-02-14] MEDS: SODIUM CHLORIDE 0.9% 1,000 ML IV SCH ×2 (10:44→17:54)
[2018-02-14] MEDS ORDERED: PROPOFOL 200 MG/20 ML VIAL IVP ONE (11:21)
[2018-02-14] MEDS ORDERED: PHENYLEPHRINE 10 MG/ML VIAL IV ONE (11:21)
[2018-02-14] MEDS ORDERED: ePHEDrine 50 MG/ML AMP IVP ONE (11:21)
[2018-02-14] MEDS ORDERED: ceFAZolin 1 GM VIAL IV ONE (11:21)
[2018-02-14] MEDS ORDERED: ONDANSETRON 4 MG/2 ML VIAL IVP ONE (11:21)
--- NOTE | 2018-02-14 11:23 | PROVIDER PROGRESS NOTE ---
Subjective - Prog Note Date Prog Note Date: 02/14/18 Prog Note Time: 11:23 - Subjective Pt reports feeling: Improved Subjective: Elier states that he rested well, and although PT was difficult today, his pain was tolerable. He denies chest pain, shortness of breath, cough, nausea or vomiting. He does not believe that he has had any coughing. He continues to have a poor appetite post op. Objective - Vital Signs/Intake & Output Reviewed Vital Signs: Yes Vital Signs: Vital Signs x48h Temp Pulse Pulse Pulse Pulse Resp BP 02/14/18 10:04 75 80 76 122/77 02/14/18 10:00 36.4 C L 70 16 02/14/18 08:00 37.0 C 74 18 02/14/18 04:28 36.6 C 68 16 BP BP BP Pulse Ox 02/14/18 10:04 122/77 119/81 H 02/14/18 10:00 122/67 96 02/14/18 08:00 125/80 100 02/14/18 04:28 118/67 96 Intake & Output: Intake & Output 02/11/18 02/12/18 02/13/18 02/14/18 23:59 23:59 23:59 23:59 Intake Total 2614.000 1510 Output Total 770 600 Balance 1844.000 910 - Objective General Appearance: positive: No acute distress, Alert Eyes Bilateral: positive: Normal inspection, PERRL Eyes: OU Conjunctivae pale ENT: positive: ENT inspection nml, Pharynx nml, Dry mucous membranes Neck: positive: Nml inspection, Thyroid nml, No JVD, Stiff neck Respiratory: positive: Chest non-tender, No respiratory distress, Other ( diminished bilaterally.) Cardiovascular: positive: Regular rate & rhythm, Systolic murmur, Decreased pulse(s) Peripheral Pulses: 2+ Radial (R), 2+ Radial (L), 2+ Dorsalis pedis (R), 2+ Dorsalis pedis (L) Abdomen: positive: Non-tender, Nml bowel sounds, Other (rounded, soft) Back: positive: Nml inspection Skin: positive: No rash, Warm, Dry, Pallor Extremities: positive: Nml appearance, Joint swelling (left hip, without drainage. no pain unless attempting to move.) Neurologic/Psychiatric: positive: Oriented x3, CN's nml (2-12), Motor nml, Weakness, Sensory loss, Slurred/abnml speech (slow responses, delayed responses , mild memory impairment.), Depressed mood/affect Reflexes: Bicep (R): 3+, Bicep (L): 3+, Ankle (R): 2+, Ankle (L): 2+ - Lab Results Fish Bones: 02/14/18 04:55 02/14/18 04:55 Other Labs: Lab Results x24hrs 02/14/18 02/14/18 02/14/18 Range/Units 04:55 04:55 04:55 WBC (4.8-10.8) x10^3/uL RBC (4.70-6.10) 10^6/uL Hgb (14.0-18.0) g/dL Hct (42.0-52.0) % MCV (80.0-94.0) fL MCH (27.0-31.0) pg MCHC (32.0-36.0) g/dL RDW (12.0-15.0) % Plt Count (130-450) 10^3/uL MPV (7.4-11.4) fL Neut # (Auto) (1.5-6.6) 10^3/uL Lymph # (Auto) (1.5-3.5) 10^3/uL [place] # (Auto) (0.0-1.0) 10^3/uL Eos # (Auto) (0.0-0.7) 10^3/uL Baso # (Auto) (0.0-0.1) 10^3/uL Absolute Nucleated RBC x10^3/uL Nucleated RBC % /100WBC Manual Slide Review Platelet Estimate (NORMAL) RBC Morph Micro Appear (NORMAL) Sodium 136 (135-145) mmol/L Potassium 3.8 (3.5-5.0) mmol/L Chloride 105 (101-111) mmol/L Carbon Dioxide 26 (21-32) mmol/L Anion Gap 5.0 L (6-13) BUN 12 (6-20) mg/dL Creatinine 1.0 (0.6-1.2) mg/dL Estimated GFR (MDRD) 71 L (>89) Glucose 105 H (70-100) mg/dL Glycated Hemoglobin 5.4 (4.6-6.2) % Estim Average Glucose 108 H (70-100) Calcium 8.3 L (8.5-10.3) mg/dL Magnesium 2.0 (1.7-2.8) mg/dL Iron 41 L (45-182) ug/dL TIBC 242 L (250-450) ug/dL % Saturation 17 L (20-50) % Transferrin 173 L (180-329) mg/dL Total Bilirubin 0.5 (0.2-1.0) mg/dL AST 26 (10-42) IU/L ALT 13 (10-60) IU/L Alkaline Phosphatase 44 (42-121) IU/L B-Natriuretic Peptide 70 (5-100) pg/mL Total Protein 6.4 L (6.7-8.2) g/dL Albumin 3.2 (3.2-5.5) g/dL Globulin 3.2 (2.1-4.2) g/dL Albumin/Globulin Ratio 1.0 (1.0-2.2) TSH (0.34-5.60) uIU/mL Urine Color Urine Clarity (CLEAR) Urine pH (5.0-7.5) PH Ur Specific [place] (1.002-1.030) Urine Protein (NEGATIVE) mg/dL Urine Glucose (UA) (NEGATIVE) mg/dL Urine Ketones (NEGATIVE) mg/dL Urine Occult Blood (NEGATIVE) Urine Nitrite (NEGATIVE) Urine Bilirubin (NEGATIVE) Urine Urobilinogen (NORMAL) E.U./dL Ur Leukocyte Esterase (NEGATIVE) Urine RBC (0-5) /HPF Urine WBC (0-3) /HPF Urine WBC Clumps Ur Squamous Epith Cells (<= Few) Urine Bacteria (None Seen) /HPF Ur Microscopic Review Urine Culture Comments 02/14/18 02/14/18 02/14/18 Range/Units 04:55 04:55 04:55 WBC 8.2 (4.8-10.8) x10^3/uL RBC 2.78 L (4.70-6.10) 10^6/uL Hgb 10.6 L (14.0-18.0) g/dL Hct 31.8 L (42.0-52.0) % MCV 114.3 H (80.0-94.0) fL MCH 38.2 H (27.0-31.0) pg MCHC 33.4 (32.0-36.0) g/dL RDW 17.1 H (12.0-15.0) % Plt Count 124 L (130-450) 10^3/uL MPV 9.9 (7.4-11.4) fL Neut # (Auto) (1.5-6.6) 10^3/uL Lymph # (Auto) (1.5-3.5) 10^3/uL [place] # (Auto) (0.0-1.0) 10^3/uL Eos # (Auto) (0.0-0.7) 10^3/uL Baso # (Auto) (0.0-0.1) 10^3/uL Absolute Nucleated RBC x10^3/uL Nucleated RBC % /100WBC Manual Slide Review Platelet Estimate (NORMAL) RBC Morph Micro Appear (NORMAL) Sodium (135-145) mmol/L Potassium (3.5-5.0) mmol/L Chloride (101-111) mmol/L Carbon Dioxide (21-32) mmol/L Anion Gap (6-13) BUN (6-20) mg/dL Creatinine (0.6-1.2) mg/dL Estimated GFR (MDRD) (>89) Glucose (70-100) mg/dL Glycated Hemoglobin (4.6-6.2) % Estim Average Glucose (70-100) Calcium 8.3 L (8.5-10.3) mg/dL Magnesium (1.7-2.8) mg/dL Iron (45-182) ug/dL TIBC (250-450) ug/dL % Saturation (20-50) % Transferrin (180-329) mg/dL Total Bilirubin (0.2-1.0) mg/dL AST (10-42) IU/L ALT (10-60) IU/L Alkaline Phosphatase (42-121) IU/L B-Natriuretic Peptide (5-100) pg/mL Total Protein (6.7-8.2) g/dL Albumin (3.2-5.5) g/dL Globulin (2.1-4.2) g/dL Albumin/Globulin Ratio (1.0-2.2) TSH 7.92 H (0.34-5.60) uIU/mL Urine Color Urine Clarity (CLEAR) Urine pH (5.0-7.5) PH Ur Specific [place] (1.002-1.030) Urine Protein (NEGATIVE) mg/dL Urine Glucose (UA) (NEGATIVE) mg/dL Urine Ketones (NEGATIVE) mg/dL Urine Occult Blood (NEGATIVE) Urine Nitrite (NEGATIVE) Urine Bilirubin (NEGATIVE) Urine Urobilinogen (NORMAL) E.U./dL Ur Leukocyte Esterase (NEGATIVE) Urine RBC (0-5) /HPF Urine WBC (0-3) /HPF Urine WBC Clumps Ur Squamous Epith Cells (<= Few) Urine Bacteria (None Seen) /HPF Ur Microscopic Review Urine Culture Comments 02/14/18 02/13/18 Range/Units 00:55 18:20 WBC 8.9 (4.8-10.8) x10^3/uL RBC 2.70 L (4.70-6.10) 10^6/uL Hgb 10.3 L (14.0-18.0) g/dL Hct 30.5 L (42.0-52.0) % MCV 113.3 H (80.0-94.0) fL MCH 38.2 H (27.0-31.0) pg MCHC 33.7 (32.0-36.0) g/dL RDW 16.7 H (12.0-15.0) % Plt Count 129 L (130-450) 10^3/uL MPV 9.4 (7.4-11.4) fL Neut # (Auto) 5.7 (1.5-6.6) 10^3/uL Lymph # (Auto) 2.4 (1.5-3.5) 10^3/uL [place] # (Auto) 0.8 (0.0-1.0) 10^3/uL Eos # (Auto) 0.0 (0.0-0.7) 10^3/uL Baso # (Auto) 0.0 (0.0-0.1) 10^3/uL Absolute Nucleated RBC 0.00 x10^3/uL Nucleated RBC % 0.0 /100WBC Manual Slide Review Indicated Platelet Estimate NORMAL (130-450,000) (NORMAL) RBC Morph Micro Appear 1+ OVALOCYTES (NORMAL) Sodium (135-145) mmol/L Potassium (3.5-5.0) mmol/L Chloride (101-111) mmol/L Carbon Dioxide (21-32) mmol/L Anion Gap (6-13) BUN (6-20) mg/dL Creatinine (0.6-1.2) mg/dL Estimated GFR (MDRD) (>89) Glucose (70-100) mg/dL Glycated Hemoglobin (4.6-6.2) % Estim Average Glucose (70-100) Calcium (8.5-10.3) mg/dL Magnesium (1.7-2.8) mg/dL Iron (45-182) ug/dL TIBC (250-450) ug/dL % Saturation (20-50) % Transferrin (180-329) mg/dL Total Bilirubin (0.2-1.0) mg/dL AST (10-42) IU/L ALT (10-60) IU/L Alkaline Phosphatase (42-121) IU/L B-Natriuretic Peptide (5-100) pg/mL Total Protein (6.7-8.2) g/dL Albumin (3.2-5.5) g/dL Globulin (2.1-4.2) g/dL Albumin/Globulin Ratio (1.0-2.2) TSH (0.34-5.60) uIU/mL Urine Color YELLOW Urine Clarity HAZY (CLEAR) Urine pH 6.0 (5.0-7.5) PH Ur Specific [place] 1.020 (1.002-1.030) Urine Protein TRACE (NEGATIVE) mg/dL Urine Glucose (UA) NEGATIVE (NEGATIVE) mg/dL Urine Ketones NEGATIVE (NEGATIVE) mg/dL Urine Occult Blood TRACE-INTA (NEGATIVE) Urine Nitrite NEGATIVE (NEGATIVE) Urine Bilirubin NEGATIVE (NEGATIVE) Urine Urobilinogen 0.2 (NORMAL) (NORMAL) E.U./dL Ur Leukocyte Esterase SMALL H (NEGATIVE) Urine RBC 6-10 H (0-5) /HPF Urine WBC >25 H (0-3) /HPF Urine WBC Clumps PRESENT Ur Squamous Epith Cells NONE SEEN (<= Few) Urine Bacteria Few (None Seen) /HPF Ur Microscopic Review INDICATED Urine Culture Comments INDICATED ABX Reporting Has patient been on IV antibiotics over the past 48 hours?: Yes Assessment/Plan - Problem List (1) Closed left hip fracture Impression: The patient sustained a fall, landing on his left side. Imaging showed an intratrochanteric fracture. The patient underwent a surgical repair on (02/13/18 ) with Dr. Dalton and so far has not had any complications, besides mild worsening mental status. Physical therapy recommends SNF after initial evaluation today. Plan: Continue PT/OT at least daily. Qualifiers: Encounter type: initial encounter Qualified Code(s): S72.002A - Fracture of unspecified part of neck of left femur, initial encounter for closed fracture (2) Multiple falls Impression: The patient admits to several recent mechanical falls and denies loss of consciousness. Unlike previous times, this time the patient was injured as a consequence of his fall. Preliminary testing show a mild aortic regurg, and a murmur is appreciated upon exam. The TSH was elevated today, so follow up testing including T3/ free T4 is pending. A urine culture is pending and negative so far. Plan: Fall precautions, monitor for post-op altered mental status. Continue physical therapy at least daily. (3) BPH associated with nocturia Impression: The patient admits to chronic nocturia, and gets up to urinate in the night up to 4 times. He has ongoing dysuria while in the hospital including times of incontinence. Nursing reports small amounts of urine ~100 mL at the most each time. Oral Flomax 0.4mg was started today. Plan: Await urine culture results, continue Q6 hour bladder scans/straight cath , PRN for urine greater than 500mL or for symptoms. Continue daily Flomax. (4) Leukocytosis Impression: The patient was noted to have an elevated WBC count of 11.4 upon admission, that now normal. He denies recent steroid use. I still suspect UTI, and we will continue IV treatment. Plan: Await culture results, monitor labs at least daily. Qualifiers: Leukocytosis type: other Qualified Code(s): D72.828 - Other elevated white blood cell count (5) Heart murmur Impression: The patient denies ANY cardiac history and take zero medications at home. The patient and his denies previous knowledge of a heart murmur. The patient is noted to have a rounded, firm abdomen without a known pulmonary history. Preliminary Echo results show a trace amount of aortic regurg. A BNP was normal at 70. Plan: Monitor labs. (6) Post-operative state Impression: The patient underwent a repair of his left hip with Dr. Dalton on 02/13/18. Dr. Dalton usually makes daily visit, and there are no post-op complications thus far. He remains on a prophylaxis daily full dose aspirin. Plan: Continue to monitor. (7) Anemia Impression: The patient appears to have a baseline H/H of 14.1/41.6 that is now down to 10.6 /31.8. Estimated blood loss is documented as 50 mL during surgery. Labs also show a macrocytic anemia with MCV being very elevated. Iron studies reveal a low iron at 41, TIBC of 242, % 17, transferrin 173. He has a mildly decreased platelet level of 124 today. Plan: Continue to monitor and start ferrous sulfate. Qualifiers: Anemia type: iron deficiency (8) Hypothyroidism (acquired) Impression: The patient has had recent falls, so as per fall work up, a TSH was checked and found to be elevated at 7.92. Follow up labs are pending. Plan: Consider starting Synthroid at 112 mcg daily.
--- NOTE | 2018-02-14 12:16 | PROVIDER PROGRESS NOTE ---
Subjective - Prog Note Date Prog Note Date: 02/14/18 Prog Note Time: 12:14 - Subjective Pt reports feeling: Improved (Less hip pain. Up in PT) Objective - Vital Signs/Intake & Output Vital Signs: Vital Signs x48h Temp Pulse Pulse Pulse Pulse Resp BP 02/14/18 10:04 75 80 76 122/77 02/14/18 10:00 36.4 C L 70 16 02/14/18 08:00 37.0 C 74 18 02/14/18 04:28 36.6 C 68 16 BP BP BP Pulse Ox 02/14/18 10:04 122/77 119/81 H 02/14/18 10:00 122/67 96 02/14/18 08:00 125/80 100 02/14/18 04:28 118/67 96 Intake & Output: Intake & Output 02/11/18 02/12/18 02/13/18 02/14/18 23:59 23:59 23:59 23:59 Intake Total 2614.000 1510 Output Total 770 900 Balance 1844.000 610 - Lab Results Fish Bones: 02/14/18 04:55 02/14/18 04:55 Other Labs: Lab Results x24hrs 02/14/18 02/14/18 02/14/18 Range/Units 05:55 04:55 04:55 WBC (4.8-10.8) x10^3/uL RBC (4.70-6.10) 10^6/uL Hgb (14.0-18.0) g/dL Hct (42.0-52.0) % MCV (80.0-94.0) fL MCH (27.0-31.0) pg MCHC (32.0-36.0) g/dL RDW (12.0-15.0) % Plt Count (130-450) 10^3/uL MPV (7.4-11.4) fL Neut # (Auto) (1.5-6.6) 10^3/uL Lymph # (Auto) (1.5-3.5) 10^3/uL [place] # (Auto) (0.0-1.0) 10^3/uL Eos # (Auto) (0.0-0.7) 10^3/uL Baso # (Auto) (0.0-0.1) 10^3/uL Absolute Nucleated RBC x10^3/uL Nucleated RBC % /100WBC Manual Slide Review Platelet Estimate (NORMAL) RBC Morph Micro Appear (NORMAL) Sodium (135-145) mmol/L Potassium (3.5-5.0) mmol/L Chloride (101-111) mmol/L Carbon Dioxide (21-32) mmol/L Anion Gap (6-13) BUN (6-20) mg/dL Creatinine (0.6-1.2) mg/dL Estimated GFR (MDRD) (>89) Glucose (70-100) mg/dL Glycated Hemoglobin 5.4 (4.6-6.2) % Estim Average Glucose 108 H (70-100) Calcium (8.5-10.3) mg/dL Magnesium (1.7-2.8) mg/dL Iron (45-182) ug/dL TIBC (250-450) ug/dL % Saturation (20-50) % Transferrin (180-329) mg/dL Total Bilirubin (0.2-1.0) mg/dL AST (10-42) IU/L ALT (10-60) IU/L Alkaline Phosphatase (42-121) IU/L B-Natriuretic Peptide 70 (5-100) pg/mL Total Protein (6.7-8.2) g/dL Albumin (3.2-5.5) g/dL Globulin (2.1-4.2) g/dL Albumin/Globulin Ratio (1.0-2.2) TSH (0.34-5.60) uIU/mL Free T4 0.72 (0.58-1.64) ng/dL Urine Color Urine Clarity (CLEAR) Urine pH (5.0-7.5) PH Ur Specific [place] (1.002-1.030) Urine Protein (NEGATIVE) mg/dL Urine Glucose (UA) (NEGATIVE) mg/dL Urine Ketones (NEGATIVE) mg/dL Urine Occult Blood (NEGATIVE) Urine Nitrite (NEGATIVE) Urine Bilirubin (NEGATIVE) Urine Urobilinogen (NORMAL) E.U./dL Ur Leukocyte Esterase (NEGATIVE) Urine RBC (0-5) /HPF Urine WBC (0-3) /HPF Urine WBC Clumps Ur Squamous Epith Cells (<= Few) Urine Bacteria (None Seen) /HPF Ur Microscopic Review Urine Culture Comments 02/14/18 02/14/18 02/14/18 Range/Units 04:55 04:55 04:55 WBC (4.8-10.8) x10^3/uL RBC (4.70-6.10) 10^6/uL Hgb (14.0-18.0) g/dL Hct (42.0-52.0) % MCV (80.0-94.0) fL MCH (27.0-31.0) pg MCHC (32.0-36.0) g/dL RDW (12.0-15.0) % Plt Count (130-450) 10^3/uL MPV (7.4-11.4) fL Neut # (Auto) (1.5-6.6) 10^3/uL Lymph # (Auto) (1.5-3.5) 10^3/uL [place] # (Auto) (0.0-1.0) 10^3/uL Eos # (Auto) (0.0-0.7) 10^3/uL Baso # (Auto) (0.0-0.1) 10^3/uL Absolute Nucleated RBC x10^3/uL Nucleated RBC % /100WBC Manual Slide Review Platelet Estimate (NORMAL) RBC Morph Micro Appear (NORMAL) Sodium 136 (135-145) mmol/L Potassium 3.8 (3.5-5.0) mmol/L Chloride 105 (101-111) mmol/L Carbon Dioxide 26 (21-32) mmol/L Anion Gap 5.0 L (6-13) BUN 12 (6-20) mg/dL Creatinine 1.0 (0.6-1.2) mg/dL Estimated GFR (MDRD) 71 L (>89) Glucose 105 H (70-100) mg/dL Glycated Hemoglobin (4.6-6.2) % Estim Average Glucose (70-100) Calcium 8.3 L 8.3 L (8.5-10.3) mg/dL Magnesium 2.0 (1.7-2.8) mg/dL Iron 41 L (45-182) ug/dL TIBC 242 L (250-450) ug/dL % Saturation 17 L (20-50) % Transferrin 173 L (180-329) mg/dL Total Bilirubin 0.5 (0.2-1.0) mg/dL AST 26 (10-42) IU/L ALT 13 (10-60) IU/L Alkaline Phosphatase 44 (42-121) IU/L B-Natriuretic Peptide (5-100) pg/mL Total Protein 6.4 L (6.7-8.2) g/dL Albumin 3.2 (3.2-5.5) g/dL Globulin 3.2 (2.1-4.2) g/dL Albumin/Globulin Ratio 1.0 (1.0-2.2) TSH 7.92 H (0.34-5.60) uIU/mL Free T4 (0.58-1.64) ng/dL Urine Color Urine Clarity (CLEAR) Urine pH (5.0-7.5) PH Ur Specific [place] (1.002-1.030) Urine Protein (NEGATIVE) mg/dL Urine Glucose (UA) (NEGATIVE) mg/dL Urine Ketones (NEGATIVE) mg/dL Urine Occult Blood (NEGATIVE) Urine Nitrite (NEGATIVE) Urine Bilirubin (NEGATIVE) Urine Urobilinogen (NORMAL) E.U./dL Ur Leukocyte Esterase (NEGATIVE) Urine RBC (0-5) /HPF Urine WBC (0-3) /HPF Urine WBC Clumps Ur Squamous Epith Cells (<= Few) Urine Bacteria (None Seen) /HPF Ur Microscopic Review Urine Culture Comments 02/14/18 02/14/18 02/13/18 Range/Units 04:55 00:55 18:20 WBC 8.2 8.9 (4.8-10.8) x10^3/uL RBC 2.78 L 2.70 L (4.70-6.10) 10^6/uL Hgb 10.6 L 10.3 L (14.0-18.0) g/dL Hct 31.8 L 30.5 L (42.0-52.0) % MCV 114.3 H 113.3 H (80.0-94.0) fL MCH 38.2 H 38.2 H (27.0-31.0) pg MCHC 33.4 33.7 (32.0-36.0) g/dL RDW 17.1 H 16.7 H (12.0-15.0) % Plt Count 124 L 129 L (130-450) 10^3/uL MPV 9.9 9.4 (7.4-11.4) fL Neut # (Auto) 5.7 (1.5-6.6) 10^3/uL Lymph # (Auto) 2.4 (1.5-3.5) 10^3/uL [place] # (Auto) 0.8 (0.0-1.0) 10^3/uL Eos # (Auto) 0.0 (0.0-0.7) 10^3/uL Baso # (Auto) 0.0 (0.0-0.1) 10^3/uL Absolute Nucleated RBC 0.00 x10^3/uL Nucleated RBC % 0.0 /100WBC Manual Slide Review Indicated Platelet Estimate NORMAL (130-450,000) (NORMAL) RBC Morph Micro Appear 1+ OVALOCYTES (NORMAL) Sodium (135-145) mmol/L Potassium (3.5-5.0) mmol/L Chloride (101-111) mmol/L Carbon Dioxide (21-32) mmol/L Anion Gap (6-13) BUN (6-20) mg/dL Creatinine (0.6-1.2) mg/dL Estimated GFR (MDRD) (>89) Glucose (70-100) mg/dL Glycated Hemoglobin (4.6-6.2) % Estim Average Glucose (70-100) Calcium (8.5-10.3) mg/dL Magnesium (1.7-2.8) mg/dL Iron (45-182) ug/dL TIBC (250-450) ug/dL % Saturation (20-50) % Transferrin (180-329) mg/dL Total Bilirubin (0.2-1.0) mg/dL AST (10-42) IU/L ALT (10-60) IU/L Alkaline Phosphatase (42-121) IU/L B-Natriuretic Peptide (5-100) pg/mL Total Protein (6.7-8.2) g/dL Albumin (3.2-5.5) g/dL Globulin (2.1-4.2) g/dL Albumin/Globulin Ratio (1.0-2.2) TSH (0.34-5.60) uIU/mL Free T4 (0.58-1.64) ng/dL Urine Color YELLOW Urine Clarity HAZY (CLEAR) Urine pH 6.0 (5.0-7.5) PH Ur Specific [place] 1.020 (1.002-1.030) Urine Protein TRACE (NEGATIVE) mg/dL Urine Glucose (UA) NEGATIVE (NEGATIVE) mg/dL Urine Ketones NEGATIVE (NEGATIVE) mg/dL Urine Occult Blood [place] (NEGATIVE) Urine Nitrite NEGATIVE (NEGATIVE) Urine Bilirubin NEGATIVE (NEGATIVE) Urine Urobilinogen 0.2 (NORMAL) (NORMAL) E.U./dL Ur Leukocyte Esterase SMALL H (NEGATIVE) Urine RBC 6-10 H (0-5) /HPF Urine WBC >25 H (0-3) /HPF Urine WBC Clumps PRESENT Ur Squamous Epith Cells NONE SEEN (<= Few) Urine Bacteria Few (None Seen) /HPF Ur Microscopic Review INDICATED Urine Culture Comments INDICATED - Other Results/Comments Other Results/Comments: Left hip: Dressing intact. Mildly tender laterally. Minimal hip pain with rotation. N/V ok distally. Assessment/Plan - Problem List (1) Closed left hip fracture Impression: Satis post op PLAN: Mobilize as tolerated. Qualifiers: Encounter type: initial encounter Qualified Code(s): S72.002A - Fracture of unspecified part of neck of left femur, initial encounter for closed fracture
[2018-02-14] MEDS: MORPHINE 2 MG/ML SYRINGE IVP PRN ×2 (18:56→21:22)
[2018-02-15] MEDS: SODIUM CHLORIDE 0.9% 1,000 ML IV SCH (04:06)
[2018-02-15 05:42] LABS: MEAN CORPUSCULAR HEMOGLOBIN 38.5 pg (27.0-31.0); MEAN CORPUSCULAR VOLUME 113.2 fL (80.0-94.0); MEAN PLATELET VOLUME 9.6 fL (7.4-11.4); RED BLOOD COUNT 2.59 10^6/uL (4.70-6.10); RED CELL DISTRIBUTION WIDTH 16.2 % (12.0-15.0); WHITE BLOOD COUNT 6.5 x10^3/uL (4.8-10.8)
[2018-02-15 05:56] LABS: ALBUMIN 3.1 g/dL (3.2-5.5); ALBUMIN/GLOBULIN RATIO 0.9 (1.0-2.2); ALKALINE PHOSPHATASE 41 IU/L (42-121); ALT ALANINE AMINOTRANSFERASE < 10 IU/L (10-60); AST ASPARTATE AMINOTRANSFERASE 26 IU/L (10-42); BILIRUBIN,TOTAL 0.7 mg/dL (0.2-1.0); BUN - BLOOD UREA NITROGEN 12 mg/dL (6-20); CALCIUM 8.6 mg/dL (8.5-10.3); CARBON DIOXIDE - CO2 27 mmol/L (21-32); CHLORIDE 105 mmol/L (101-111); CREATININE 0.9 mg/dL (0.6-1.2); GFR - MDRD 80 (>89); GLUCOSE 106 mg/dL (70-100); SODIUM 137 mmol/L (135-145); TOTAL PROTEIN 6.4 g/dL (6.7-8.2)
[2018-02-15] MEDS: SODIUM CHLORIDE FLUSH 0.9% 10 ML SYRINGE IVP PRN ×2 (06:12→06:21)
[2018-02-15] MEDS: PANTOPRAZOLE 40 MG VIAL IVP SCH (06:12)
[2018-02-15] MEDS: ASPIRIN 325 MG TABLET PO SCH (08:30)
[2018-02-15] MEDS: FOLIC ACID 1 MG TABLET PO SCH (08:30)
[2018-02-15] MEDS: TAMSULOSIN 0.4 MG CAPSULE PO SCH (08:30)
[2018-02-15] MEDS: POLYETHYLENE GLYCOL 3350 17 GM PACKET PO SCH (08:31)
[2018-02-15] MEDS: SODIUM CHLORIDE FLUSH 0.9% 10 ML SYRINGE IVP SCH (08:31)
[2018-02-15] MEDS ORDERED: SENNA 8.6 MG TABLET PO SCH (09:00)
[2018-02-15] MEDS ORDERED: DOCUSATE SODIUM 250 MG CAPSULE PO SCH (09:00)
[2018-02-15] MEDS ORDERED: FERROUS SULFATE 325 MG TABLET PO SCH (09:00)
--- NOTE | 2018-02-15 11:23 | PROVIDER PROGRESS NOTE ---
Subjective - Prog Note Date Prog Note Date: 02/15/18 Prog Note Time: 11:21 - Subjective Pt reports feeling: Improved Objective - Vital Signs/Intake & Output Vital Signs: Vital Signs x48h Temp Pulse Resp BP Pulse Ox 02/15/18 07:40 36.5 C 79 14 137/64 H 100 Intake & Output: Intake & Output 02/12/18 02/13/18 02/14/18 02/15/18 23:59 23:59 23:59 23:59 Intake Total 2614.000 2100 370 Output Total 770 1150 200 Balance 1844.000 950 170 - Lab Results Fish Bones: 02/15/18 05:00 02/15/18 05:00 Other Labs: Lab Results x24hrs 02/15/18 02/15/18 02/15/18 Range/Units 05:00 05:00 05:00 WBC 6.5 (4.8-10.8) x10^3/uL RBC 2.59 L (4.70-6.10) 10^6/uL Hgb 10.0 L (14.0-18.0) g/dL Hct 29.3 L (42.0-52.0) % MCV 113.2 H (80.0-94.0) fL MCH 38.5 H (27.0-31.0) pg MCHC 34.0 (32.0-36.0) g/dL RDW 16.2 H (12.0-15.0) % Plt Count 122 L (130-450) 10^3/uL MPV 9.6 (7.4-11.4) fL Sodium 137 (135-145) mmol/L Potassium 3.7 (3.5-5.0) mmol/L Chloride 105 (101-111) mmol/L Carbon Dioxide 27 (21-32) mmol/L Anion Gap 5.0 L (6-13) BUN 12 (6-20) mg/dL Creatinine 0.9 (0.6-1.2) mg/dL Estimated GFR (MDRD) 80 L (>89) Glucose 106 H (70-100) mg/dL Calcium 8.6 (8.5-10.3) mg/dL Magnesium 2.0 (1.7-2.8) mg/dL Total Bilirubin 0.7 (0.2-1.0) mg/dL AST 26 (10-42) IU/L ALT < 10 L (10-60) IU/L Alkaline Phosphatase 41 L (42-121) IU/L B-Natriuretic Peptide 81 (5-100) pg/mL Total Protein 6.4 L (6.7-8.2) g/dL Albumin 3.1 L (3.2-5.5) g/dL Globulin 3.3 (2.1-4.2) g/dL Albumin/Globulin Ratio 0.9 L (1.0-2.2) Free T4 (0.58-1.64) ng/dL Free T3 pg/mL (2.5-3.9) pg/mL 02/14/18 02/14/18 Range/Units 05:55 05:55 WBC (4.8-10.8) x10^3/uL RBC (4.70-6.10) 10^6/uL Hgb (14.0-18.0) g/dL Hct (42.0-52.0) % MCV (80.0-94.0) fL MCH (27.0-31.0) pg MCHC (32.0-36.0) g/dL RDW (12.0-15.0) % Plt Count (130-450) 10^3/uL MPV (7.4-11.4) fL Sodium (135-145) mmol/L Potassium (3.5-5.0) mmol/L Chloride (101-111) mmol/L Carbon Dioxide (21-32) mmol/L Anion Gap (6-13) BUN (6-20) mg/dL Creatinine (0.6-1.2) mg/dL Estimated GFR (MDRD) (>89) Glucose (70-100) mg/dL Calcium (8.5-10.3) mg/dL Magnesium (1.7-2.8) mg/dL Total Bilirubin (0.2-1.0) mg/dL AST (10-42) IU/L ALT (10-60) IU/L Alkaline Phosphatase (42-121) IU/L B-Natriuretic Peptide (5-100) pg/mL Total Protein (6.7-8.2) g/dL Albumin (3.2-5.5) g/dL Globulin (2.1-4.2) g/dL Albumin/Globulin Ratio (1.0-2.2) Free T4 0.72 (0.58-1.64) ng/dL Free T3 pg/mL 2.99 (2.5-3.9) pg/mL - Other Results/Comments Other Results/Comments: EXAM: Left hip: nontender, mild pain with hip motion. N/V ok distally. Up on floor with assistance Assessment/Plan - Problem List (1) Closed left hip fracture Impression: Satis post op PLAN: cleared to go to SNF. Walker ambulate -WBAT on left. Aspirin x 2-3 weeks. RTC in 2 weeks for XR and staple removal. Qualifiers: Encounter type: initial encounter Qualified Code(s): S72.002A - Fracture of unspecified part of neck of left femur, initial encounter for closed fracture
--- NOTE | 2018-02-15 11:27 | Discharge Plan ---
"Discharge Plan for SNF / [facility] - DC Plan and Transition Orders Disposition: 03 SNF DC/Xfer Condition: Good SNF Transition Orders: Admit to: Care Age under the care of Crow Lutz, DO Discharge Diagnosis: Displaced left intertrochanteric fracture of femur, multiple recent falls, BPH, nocturia, urinary retention, cardiac murmur, iron deficiency anemia, post-op state, mild short term memory loss, debility. Medicare Certification: I certify that [facility] halfway care is medically necessary on a continuing basis for any of the conditions for which she/he is receiving care during hospitalization. Notify PCP of admission and forward orders to primary provider for signature. Weight on admission and monthly. Call PCP immediately if weight increases by 10 pounds or if patient develops dyspnea, chest pain/tightness or edema. House Bowel Program: yes If no BM after 2 days, nurse may give M.O.M. 30ml PO PRN and /or ducolax Supp 1 OH and /or JEMIMA 250mg P.O., and/or senna 1-2 tabs PO. On day 3 nurse may give repeat above order until residents constipation is resolved. Immunizations: Annual Influenza Vaccine: yes. (between Apr 26 and November 23. ) Unless allergy or already given Two-Step PPD: yes per [facility] [id number] or appropriate documentation of approved exceptions Treatments & Other Orders: physical & occupational therapies, fall precautions. Oxygen Orders: not needed while hospitalized. May use 1-2 L per nasal cannula to keep oxygen greater than 90%, PRN. Lab Tests or X-Rays Orders: Not indicated. Repeat iron studies ~ one month. Orthopedic Orders: Leave dressing on left hip intact until seen by orthosurgery. Follow up with ortho surgery in 1 week for x-rays. Medications: PLEASE REFER TO THE DISCHARGE MEDICATION LIST. Allergies and Adverse Reactions: Allergies Allergy/AdvReac Type Severity Reaction Status Date / Time [place] And Derivatives Allergy Intermediate Rash Verified 02/13/18 15:32 lavender (Lavandula Allergy Intermediate Rash Verified 02/13/18 15:32 angustifolia) - Medications New Prescriptions: Acetaminophen [Tylenol] 650 - 975 mg PO Q4HR PRN #60 tablet PRN Reason: Pain oxyCODONE/ACET 5/325 [Percocet 5 mg/325 mg] 1 tab PO Q4HR PRN #20 tablet PRN Reason: Pain Aspirin [Tim] 325 mg PO BIDWM #30 tablet Docusate Sodium 250Mg Capsule [Colace 250Mg Capsule] 250 - 500 mg PO DAILY #60 capsule Ferrous Sulfate 325 mg PO BID #60 tablet Folic Acid 1 mg PO DAILY #30 tablet Polyethylene Glycol 3350 [Miralax] 17 gm PO DAILY #30 packet Senna [Senokot] 17.2 mg PO DAILY #60 tablet Tamsulosin [Flomax] 0.4 mg PO BID #60 capsule - Diet Type: Geriatric Texture: Regular Liquids: Thin May have monthly special meal: Yes - Therapies | Activity Therapy: Evaluation | Treat if indicated: Speech, PT, OT Rehabilitation Potential: Maximize functional status, Return to independent living, Maintain present ADL Functional Activity: Wt Bearing as Tolerated Weight Bearing: Full Weight Assistance Devices: Walker"
--- NOTE | 2018-02-15 11:40 | DISCHARGE SUMMARY ---
Discharge Summary Admit Date: 02/12/18 Discharge Date: 02/15/18 Discharging Provider: VERONICA Pruitt Primary Care Provider: Doroteo Fleming/Crow Lutz Code Status: Attempt Resuscitation Condition at Discharge: Good Discharge Disposition: 03 SNF DC/Xfer Discharge Facility Name: Care Age - DIAGNOSES Admission Diagnoses: Fracture, intertrochanteric, left femur (S72.142A) Discharge Diagnoses with Status of Each Condition: Fracture, intertrochanteric, left femur (S72.142A) new on this admit, now post op. Multiple falls (R29.6) ongoing concern, continue with PT. 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 Anemia (D64.9) chronic, stable. Continue with iron supplements. Leukocytosis (D72.829) resolve. Heart murmur (R01.1) confirmed by Echo, stable. Post-operative state (Z98.890) new on this admit, stable without complications. 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 No meds started. - HPI History of Present Illness: Erik Villasenor (Bill) is a pleasant 87-year-old white, male with a past medical history of recent falls, BPH, neuropathy, UTI, erectile dysfunction, DJD lumbar spine, melanoma, bronchitis, seasonal rhinitis, onychomycosis, and movement disorder. The patient and his attest to him having an accidental fall while out side ambulating. They had just returned home after a long car ride to [facility] to exchange a TV. The patient states that he becomes easily agitated when he is confined to long car rides. He states that he has had a few falls in the last few days to weeks and described symptoms preceding these falls as he sees his environment spinning. He denies loss of consciousness, nausea, sweats, chest pain, palpitations, or shortness of breath during the episodes. His Ariane, asked that he call an ambulance each time he fell, but he refused. This time he fell on his left side and was able to pull himself into their car, despite his injured left hip. Once in the ED, imaging showed an intratrochanteric fracture. The Hospitalist service will plan for a full inpatient admission in anticipation for surgery by Dr. Dalton in the morning. - HOSPITAL COURSE Hospital Course: The following diagnoses were prevalent during this hospital stay: (1) Closed left hip fracture The patient sustained a fall, landing on his left side. Imaging showed an intratrochanteric fracture. The patient underwent a surgical repair on (02/13/18 ) with Dr. Dalton and so far has not had any complications, besides mild worsening mental status. The patient remains with mild poor short term memory and mild sleep disturbance. Physical therapy recommends SNF after initial evaluation to continue PT/OT at least daily. (2) Multiple falls The patient admits to several recent mechanical falls and denies loss of consciousness. Unlike previous times, this time the patient was injured as a consequence of his fall. Preliminary testing show a mild aortic regurg, and a murmur is appreciated upon exam. The TSH was elevated and follow up testing including T3/ free T4 were normal. A urine sample was collected that seemed suspicious for infection, but culture results have had NO growth. The patient remains on fall precautions and he was watched for post-op altered mental status. Physical therapy notes a sluggish gait and weakness noted in the non- affected leg. Continue physical therapy at least daily. (3) BPH associated with nocturia The patient admits to chronic nocturia, and gets up to urinate in the night up to 4 times. He has ongoing dysuria while in the hospital including times of incontinence. Nursing reports small amounts of urine ~100 mL at the most each time. The patient was bladder scanned for post void residual which ranged from 23-197 mLs. He was straight cathed just once to obtain a sterile urine sample. He was started on daily Flomax that was increased to BID upon discharge. (4) Leukocytosis The patient was noted to have an elevated WBC count of 11.4 upon admission, that now normalized at 6.5 just before discharge. He denies recent steroid use. Culture results are inconclusive as they could not grow enough colonies thus far. (5) Heart murmur The patient denies ANY cardiac history and take zero medications at home. The patient and his deny previous knowledge of a heart murmur. The patient is noted to have a rounded, firm abdomen without a known pulmonary history. Preliminary Echo results show a trace amount of aortic regurg, which explains the murmur heard on exam. A BNP was normal at 70. This is considered stable. (6) Post-operative state The patient underwent a repair of his left hip with Dr. Dalton on 02/13/18. Dr. Dalton has been making daily visits, and there have been no post-op complications thus far. He remains on a prophylaxis daily full dose aspirin. (7) Iron deficiency anemia The patient appears to have a baseline H/H of 14.1/41.6 that is now down to 10.0 /29.3. Estimated blood loss is documented as 50 mL during surgery. Labs also show a macrocytic anemia with MCV being very elevated. Iron studies reveal a low iron at 41, TIBC of 242, % 17, transferrin 173. He has a mildly decreased platelet level of 122 and this is considered stable, so the daily ASA can be continued. Continue ferrous sulfate BID and re-check iron studies in about a month. (8) Subclinical hypothyroidism The patient has had recent falls, so as per fall work up, a TSH was checked and found to be elevated at 7.92. Follow up labs show normal Free T4 and T3, so this is considered to be subclinical and therefore it would not be beneficial in starting Synthroid. Patient and were informed to watch for symptoms such as fatigue, muscle cramps, cold intolerance, Disposition: The patient was in stable condition and , Ariane is at the bedside, including staying each hospital night. Both are in agreement of admission to [facility] for further rehabilitation. The patient has never required oxygen while here. He is still on fall precautions, but calls appropriately for help. - ALLERGIES Allergies/Adverse Reactions: Allergies Allergy/AdvReac Type Severity Reaction Status Date / Time [place] And Derivatives Allergy Intermediate Rash Verified 02/13/18 15:32 lavender (Lavandula Allergy Intermediate Rash Verified 02/13/18 15:32 angustifolia) - MEDICATIONS Home Medications: Ambulatory Orders Medication Instructions Recorded Confirmed Acetaminophen [Tylenol] 650 - 975 mg PO Q4HR PRN #60 tablet 02/15/18 Aspirin [Tim] 325 mg PO BIDWM #30 tablet 02/15/18 Docusate Sodium 250Mg Capsule 250 - 500 mg PO DAILY #60 capsule 02/15/18 [Colace 250Mg Capsule] Ferrous Sulfate 325 mg PO BID #60 tablet 02/15/18 Folic Acid 1 mg PO DAILY #30 tablet 02/15/18 Polyethylene Glycol 3350 [Miralax] 17 gm PO DAILY #30 packet 02/15/18 Senna [Senokot] 17.2 mg PO DAILY #60 tablet 02/15/18 Tamsulosin [Flomax] 0.4 mg PO BID #60 capsule 02/15/18 oxyCODONE/ACET 5/325 [Percocet 5 1 tab PO Q4HR PRN #20 tablet 02/15/18 mg/325 mg] - PHYSICAL EXAM AT DISCHARGE General Appearance: positive: No acute distress, Alert Eyes Bilateral: positive: Normal inspection, PERRL ENT: positive: ENT inspection nml, Pharynx nml, No signs of dehydration Neck: positive: Nml inspection, Thyroid nml, No JVD, Trachea midline Respiratory: positive: Chest non-tender, No respiratory distress, Breath sounds nml Cardiovascular: positive: Regular rate & rhythm, No gallop, Systolic murmur, Other (+murmur, mid sternum.) Peripheral Pulses: positive: 2+ Abdomen: positive: Non-tender, No organomegaly, Nml bowel sounds Back: positive: Nml inspection Skin: positive: No rash, Warm, Dry, Other (bruised fingers on left hand due to recent fall.) Extremities: positive: Nml appearance, No pedal edema, Joint swelling (left hip , mild swelling dressing is CDI.) Neurologic/Psychiatric: positive: Oriented x3, CN's nml (2-12), Motor nml, Weakness, Sensory loss, Slurred/abnml speech (slow, delayed responses.), Depressed mood/affect Reflexes: Bicep (R): 3+, Bicep (L): 3+, Ankle (R): 2+, Ankle (L): 1+ - LABS Result Diagrams: 02/15/18 05:00 02/15/18 05:00 - DIAGNOSTIC IMAGING Diagnostic Imaging Results: Final report reviewed Diagnostic Imaging Results Comments: EXAM: LEFT HIP AND PELVIS RADIOGRAPHY. 02/12/2018 IMPRESSION: 1. Acute, mildly displaced subcapital left femoral neck fracture. 2. No dislocation. EXAM: LEFT KNEE RADIOGRAPHY. IMPRESSION: 1. Moderate left medial compartment arthritis. 2. No fracture or malalignment. 3. No effusions. ECHOCARDIOGRAM Final: Overall LV systolic function is normal with an EF of 65-70%. - FOLLOW UP Follow Up: Disposition: 03 [facility] DC/Xfer Condition: Good SNF Transition Orders: Admit to: Care Age under the care of Crow Lutz, DO Discharge Diagnosis: Displaced left intertrochanteric fracture of femur, multiple recent falls, BPH, nocturia, urinary retention, cardiac murmur, iron deficiency anemia, post-op state, mild short term memory loss, debility. - TIME SPENT Time Spent in Discharge (Minutes): 50
[2018-02-15] MEDS ORDERED: MAGNESIUM HYDROXIDE 2,400 MG/30 ML UDC PO ONE (13:13)
[2018-02-15 15:32] VITALS: BP 126/81
== END 2018-02-15 15:35 | DRG 482 ==
LOC: ED 20:35 → MS2 23:20
PROVIDERS: ADMIT Hospitalist; ATTEND Nurse Practitioner
PROC: 0QS734Z Reposition Left Upper Femur with Internal Fixation Device, Percutaneous Approach (ICD-10-PCS; principal; 2018-02-13 10:00)
DX: S72.012A Unspecified intracapsular fracture of left femur, initial encounter for closed fracture (principal); S72.142A Displaced intertrochanteric fracture of left femur, initial encounter for closed fracture; R29.6 Repeated falls; S89.92XA Unspecified injury of left lower leg, initial encounter; M25.562 Pain in left knee; I10 Essential (primary) hypertension; W01.0XXA Fall on same level from slipping, tripping and stumbling without subsequent striking against object, initial encounter; Y92.008 Other place in unspecified non-institutional (private) residence as the place of occurrence of the external cause; N40.1 Benign prostatic hyperplasia with lower urinary tract symptoms; R33.8 Other retention of urine; R35.1 Nocturia; R30.0 Dysuria; E02 Subclinical iodine-deficiency hypothyroidism; N39.498 Other specified urinary incontinence; I35.1 Nonrheumatic aortic (valve) insufficiency; D50.9 Iron deficiency anemia, unspecified; D53.9 Nutritional anemia, unspecified; R41.3 Other amnesia; D72.829 Elevated white blood cell count, unspecified; N52.9 Male erectile dysfunction, unspecified; G62.9 Polyneuropathy, unspecified; K21.9 Gastro-esophageal reflux disease without esophagitis; Z96.659 Presence of unspecified artificial knee joint; Z91.81 History of falling; Z85.820 Personal history of malignant melanoma of skin; Z87.440 Personal history of urinary (tract) infections
CPT/HCPCS: 36415; 80048; 80053; 81001; 81003; 82310; 82607; 82746; 83036; 83540; 83735; 83880; 84100; 84439; 84443; 84466; 84481; 85025; 85027; 87086; 93005; 93306; 99284

== ENCOUNTER 2018-03-26 08:00 | Outpatient (CLI) | payer MEDICARE, BC ==
[2018-03-26 20:24] LABS: CALCIUM 9.2 mg/dL (8.5-10.3)
[2018-03-26 20:25] LABS: BASOPHILS # (AUTO) 0.1 10^3/uL (0.0-0.1); BASOPHILS % (AUTO) 0.9 %; EOSINOPHILS % (AUTO) 0.7 %; HGB - HEMOGLOBIN 11.8 g/dL (14.0-18.0); LYMPHOCYTES # (AUTO) 2.5 10^3/uL (1.5-3.5); LYMPHOCYTES % (AUTO) 42.1 %; MEAN CORPUSCULAR HEMOGLOBIN 38.3 pg (27.0-31.0); MEAN CORPUSCULAR HGB CONC 33.3 g/dL (32.0-36.0); MEAN PLATELET VOLUME 10.6 fL (7.4-11.4); MONOCYTES # (AUTO) 0.4 10^3/uL (0.0-1.0); MONOCYTES % (AUTO) 6.3 %; PLT - PLATELET COUNT 176 10^3/uL (130-450); RED BLOOD COUNT 3.07 10^6/uL (4.70-6.10); RED CELL DISTRIBUTION WIDTH 17.3 % (12.0-15.0)
[2018-03-26 20:56] LABS: PLATELET ESTIMATE, MANUAL NORMAL (130-450,000) (NORMAL); PLATELET MORPHOLOGY NORMAL APPEARANCE (NORMAL)
== END 2018-03-26 08:01 ==
LOC: LAB.R 08:00
DX: D50.9 Iron deficiency anemia, unspecified (principal); R79.89 Other specified abnormal findings of blood chemistry; R68.89 Other general symptoms and signs; S72.143A Displaced intertrochanteric fracture of unspecified femur, initial encounter for closed fracture
CPT/HCPCS: 80048; 83540; 84466; 85025